=== PATIENT | female | born 1995 | race Caucasian/White ===

== ENCOUNTER 2023-08-04 16:29 | Emergency (ER) | payer MEDICAID ==
[~2023-08-04] VITALS: Ht 172.7 cm; Wt 122.2 kg
[2023-08-04 17:08] LABS: URINE HCG NEGATIVE (NEG)
[2023-08-04 17:10] LABS: BILIRUBIN,URINE NEGATIVE (Neg); CLARITY,URINE CLEAR (Clear); COLOR,URINE YELLOW (Yellow); GLUCOSE, URINE NEGATIVE (Neg); KETONES,URINE NEGATIVE (Neg); LEUKOCYTE ESTERASE ,URINE TRACE (Neg); NITRITES, URINE NEGATIVE (Neg); OCCULT BLOOD,URINE NEGATIVE (Neg); PROTEIN,URINE NEGATIVE (Neg); UROBILINOGEN,URINE 0.2 E.U/dL (0.2-1.0)
[2023-08-04 17:13] LABS: UA COLLECTION TYPE CLN CATCH MIDSTREAM
[2023-08-04 17:19] LABS: RBC,URINE 0-2 /HPF (0-2)
[2023-08-04 17:20] LABS: MUCUS STRANDS FEW /LPF (Neg); SQUAMOUS EPITHELIAL CELL,UR FEW /LPF (FEW)
[2023-08-04 17:22] LABS: BACTERIA,URINE 3+ /HPF (Neg)
[2023-08-04] MEDS ORDERED: cephalexin 250mg capsule PO ONE (17:55)
[2023-08-04] MEDS ORDERED: CEPH-585 PO (17:57)
[2023-08-04 18:24] VITALS: BP 110/74; PULSE 69; RESP 18; TEMP 97.7; O2SAT 98
--- NOTE | 2023-08-04 23:19 | NUR ---
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
== END 2023-08-04 18:28 | disposition home or self-care (01) ==
LOC: ER 16:30
DX: N39.0 Urinary tract infection, site not specified (principal); M25.561 Pain in right knee; R22.41 Localized swelling, mass and lump, right lower limb
CPT/HCPCS: 81001; 81025; 87088; 99283

== ENCOUNTER 2024-01-04 10:32 | Emergency (ER) | payer MEDICAID ==
[~2024-01-04 10:32] MED LIST: CEPH-585 PO
== END 2024-01-04 11:36 | disposition left against medical advice (07) ==
LOC: ER 10:33
DX: Z53.21 Procedure and treatment not carried out due to patient leaving prior to being seen by health care provider (principal)

== ENCOUNTER 2024-01-09 08:31 | Inpatient (IN) | payer MEDICAID ==
[~2024-01-09] VITALS: Ht 172.7 cm; Wt 111.2 kg
[2024-01-09 09:08] LABS: BILIRUBIN,URINE MODERATE (Neg); CLARITY,URINE CLOUDY (Clear); COLOR,URINE YELLOW (Yellow); GLUCOSE, URINE NEGATIVE (Neg); KETONES,URINE 15 mg/dl (Neg); LEUKOCYTE ESTERASE ,URINE TRACE (Neg); NITRITES, URINE NEGATIVE (Neg); OCCULT BLOOD,URINE TRACE-INTACT (Neg); PROTEIN,URINE TRACE mg/dl (Neg); UROBILINOGEN,URINE 0.2 E.U/dL (0.2-1.0)
[2024-01-09 09:10] LABS: UA COLLECTION TYPE CLN CATCH MIDSTREAM; URINE HCG NEGATIVE (NEG)
[2024-01-09 09:14] LABS: MUCUS STRANDS MODERATE /LPF (Neg); SQUAMOUS EPITHELIAL CELL,UR MANY /LPF (FEW)
[2024-01-09 09:15] LABS: BACTERIA,URINE 4+ /HPF (Neg)
[2024-01-09 09:29] LABS: URINE AMPHETAMINE SCREEN NEGATIVE (Neg); URINE BARBITUATE SCREEN NEGATIVE (Neg); URINE BENZODIAZEPINES SCREEN NEGATIVE (Neg); URINE CANNABINOID SCREEN NEGATIVE (Neg); URINE COCAINE SCREEN NEGATIVE (Neg); URINE METHADONE SCREEN NEGATIVE (Neg); URINE OPIATE SCREEN NEGATIVE (Neg); URINE PHENCYCLIDINE SCREEN NEGATIVE (Neg)
[2024-01-09 10:10] LABS: BASOPHILS # (AUTO) 0.1 X10'3 (0-0.2); BASOPHILS % (AUTO) 0.8 % (0-1); EOSINOPHILS # (AUTO) 0.2 X10'3 (0-0.9); EOSINOPHILS % (AUTO) 2.1 % (0-6); HEMATOCRIT 38.5 % (35.0-45.0); HEMOGLOBIN 12.9 g/dl (12.0-16.0); LYMPHOCYTES % (AUTO) 26.1 % (21-51); MEAN CORPUSCULAR HEMOGLOBIN 29.1 PG (27.0-31.0); MEAN CORPUSCULAR HGB CONC 33.4 g/dL (33.0-36.5); MEAN CORPUSCULAR VOLUME 87.1 FL (78-98); MEAN PLATELET VOLUME 8.8 FL (7.4-10.4); MONOCYTES # (AUTO) 0.7 X10'3 (0-0.9); MONOCYTES % (AUTO) 9.4 % (2-12); NEUTROPHILS # (AUTO) 4.7 X10'3 (1.8-7.7); NEUTROPHILS % (AUTO) 61.6 % (42-75); PLATELET COUNT 285 X10'3 (140-440); RED BLOOD COUNT 4.42 X10'6 (4.20-5.60); WHITE BLOOD COUNT 7.6 X10'3 (4.5-11.0)
[2024-01-09 10:37] LABS: ALBUMIN 3.8 G/DL (3.4-5.0); ANION GAP 12 (8-16); BLOOD UREA NITROGEN 12 MG/DL (7-18); BUN/CREATININE RATIO 16.7 (10.0-20.0); CALCIUM 9.8 MG/DL (8.5-10.1); CHLORIDE 103 MMOL/L (99-107); CREATININE 0.72 MG/DL (0.40-0.90); ETHANOL < 10 MG/DL (<10); GLUCOSE 88 MG/DL (70-104); SODIUM 140 MMOL/L (135-145); THYROID STIMULATING HORMONE 0.93 ulU/ml (0.34-4.50); TOTAL CARBON DIOXIDE 25.1 MMOL/L (24-32); eCRCL 117 ML/MIN; eGFR > 90 ML/MIN
[2024-01-09] MEDS: haloperidol lactate 5mg/ml inj IM ONE (10:43)
[2024-01-09] MEDS: LORazepam 2 mg/ml vial IM ONE (10:43)
[2024-01-09 10:58] LABS: POTASSIUM 3.5 MMOL/L (3.5-5.1)
[2024-01-09] MEDS ORDERED: FLUO20CA39 PO (13:38)
[2024-01-09] MEDS ORDERED: QUET-1 PO (13:38)
[2024-01-09] MEDS: nitrofuran monohydrate/nitrofuran macrocrysal 100 MG (MacroBID) capsule PO SCH (19:32)
[2024-01-09] MEDS: quetiapine 100mg tablet PO SCH (19:32)
[2024-01-10] MEDS: FLUoxetine 20mg capsule PO SCH (08:39)
[2024-01-10 09:15] VITALS: BP 130/90; PULSE 134; RESP 16; TEMP 97.9; O2SAT 95
[2024-01-10 09:30] VITALS: RESP 16; O2SAT 95
[2024-01-10] MEDS ORDERED: loperamide 2mg capsule PO PRN (09:35)
[2024-01-10] MEDS: LORazepam 1 MG tablet PO ONE (16:23)
[2024-01-10] MEDS: QUEtiapine 25mg tablet PO PRN (17:00)
[2024-01-10 17:26] VITALS: BP 111/66; PULSE 130; O2SAT 95
[2024-01-10 19:00] VITALS: BP 134/87; PULSE 125; RESP 16; TEMP 97.9; O2SAT 97
[2024-01-11 07:00] VITALS: RESP 16; O2SAT 95
[2024-01-11 08:00] VITALS: BP 123/89; PULSE 100; RESP 16; TEMP 98.9; O2SAT 97
[2024-01-11 19:15] VITALS: BP 133/83; PULSE 109; RESP 16; TEMP 98.7; O2SAT 97
[2024-01-11] MEDS: QUEtiapine 25mg tablet PO SCH (20:02)
[2024-01-11] MEDS: acetaminophen 325mg tablet PO PRN (20:03)
[2024-01-11] MEDS: LORazepam 1 MG tablet PO ONE (21:59)
[2024-01-12 07:09] VITALS: RESP 16; O2SAT 95
[2024-01-12 08:00] VITALS: BP 132/83; PULSE 102; RESP 16; TEMP 98.4; O2SAT 98
[2024-01-12] MEDS: quetiapine 100mg tablet PO SCH ×2 (08:36→20:15)
[2024-01-12 09:21] LABS: HCG SERUM QL NEGATIVE
[2024-01-12 09:25] LABS: CHOL/HDL RATIO 3.3 (0.00-4.99); CHOLESTEROL 163 MG/DL (0-200); HDL CHOLESTEROL 49 MG/DL (35-60); LDL CHOLESTEROL 99 MG/DL (50-100); TRIGLYCERIDES 63 MG/DL (20-135)
[2024-01-12] MEDS: quetiapine 100mg tablet PO ONE (19:01)
[2024-01-12] MEDS: LORazepam 1 MG tablet PO ONE (19:02)
[2024-01-12 19:19] VITALS: BP 129/88; PULSE 107; RESP 16; TEMP 98.3; O2SAT 97
[2024-01-12] MEDS: QUEtiapine 25mg tablet PO SCH (20:14)
[2024-01-12] MEDS: divalproex sod 250mg ER (24-hour) tablet PO SCH (20:14)
[2024-01-13 07:00] VITALS: RESP 16; O2SAT 98
[2024-01-13 08:00] VITALS: BP 109/75; PULSE 106; RESP 16; TEMP 98.3; O2SAT 98
[2024-01-13] MEDS: LORazepam 1 MG tablet PO ONE (12:14)
[2024-01-13] MEDS: QUEtiapine 25mg tablet PO ONE (12:54)
[2024-01-13 19:48] VITALS: BP 109/73; PULSE 105; RESP 19; TEMP 98.6; O2SAT 98
[2024-01-13] MEDS: divalproex sod 250mg ER (24-hour) tablet PO SCH (20:18)
[2024-01-14 07:30] VITALS: BP 115/97; PULSE 90; RESP 12; TEMP 98.3; O2SAT 96
[2024-01-14 07:31] VITALS: RESP 16
[2024-01-14] MEDS: QUEtiapine 25mg tablet PO PRN (08:54)
[2024-01-14] MEDS: haloperidol lactate 5mg/ml inj ONE (11:06)
[2024-01-14] MEDS: diphenhydrAMINE 50 mg/ml inj ONE (11:07)
[2024-01-14] MEDS: LORazepam 2 mg/ml vial ONE (11:07)
[2024-01-14 19:40] VITALS: RESP 16
[2024-01-14 19:42] VITALS: BP 117/69; PULSE 98; RESP 16; TEMP 97.8; O2SAT 98
[2024-01-15 07:30] VITALS: RESP 18; O2SAT 99
[2024-01-15 07:33] VITALS: BP 112/52; PULSE 83; RESP 18; TEMP 97.8; O2SAT 99
[2024-01-15] MEDS: magnesium hydroxide 30ml (MOM) UD suspension PO PRN (07:42)
[2024-01-15 19:23] VITALS: BP 119/82; PULSE 107; RESP 16; TEMP 98.1; O2SAT 96
[2024-01-16 06:58] VITALS: RESP 18; O2SAT 99
[2024-01-16 07:03] VITALS: BP 118/80; PULSE 91; RESP 18; TEMP 98.9; O2SAT 99
[2024-01-16 07:13] LABS: HBSAG SCREEN Negative (Negative); HEP B CORE AB, IGM Negative (Negative); HEP B CORE AB, TOT Negative (Negative)
[2024-01-16] MEDS: calcium carbonate 500mg chew tablet PO PRN (09:56)
[2024-01-16] MEDS: LORazepam 0.5 MG tablet PO PRN (09:56)
[2024-01-16 19:00] VITALS: RESP 18; O2SAT 95
[2024-01-16 20:41] VITALS: BP 119/99; PULSE 53; RESP 18; TEMP 98.3; O2SAT 95
[2024-01-17 07:24] VITALS: RESP 18; O2SAT 99
[2024-01-17] MEDS: QUEtiapine 25mg tablet PO SCH (08:00)
[2024-01-17 08:30] VITALS: BP 106/75; PULSE 89; RESP 18; TEMP 98.5; O2SAT 99
[2024-01-17 19:04] VITALS: RESP 16; O2SAT 98
[2024-01-17 19:22] VITALS: BP 119/81; PULSE 98; RESP 18; TEMP 98.2; O2SAT 99
[2024-01-17] MEDS ORDERED: quetiapine 100mg tablet PO SCH (21:00)
[2024-01-17] MEDS: quetiapine 100mg tablet PO SCH (21:10)
[2024-01-18 07:00] VITALS: RESP 16; O2SAT 99
[2024-01-18 07:30] VITALS: BP 127/76; PULSE 103; RESP 16; TEMP 98.7; O2SAT 99
[2024-01-18 19:00] VITALS: RESP 16; O2SAT 97
[2024-01-18 20:00] VITALS: BP 119/76; PULSE 109; RESP 16; TEMP 98.2; O2SAT 97
[2024-01-18] MEDS: traZODone 50mg tablet PO PRN (20:37)
[2024-01-19 07:00] VITALS: RESP 18; O2SAT 98
[2024-01-19 07:30] VITALS: BP 113/81; PULSE 98; RESP 18; TEMP 98.7; O2SAT 98
[2024-01-19] MEDS: fluticasone nasal spray 16GM bottle NS SCH (13:27)
[2024-01-19 19:30] VITALS: BP 120/70; PULSE 91; RESP 14; TEMP 98.6; O2SAT 99
[2024-01-19] MEDS: divalproex sod 250mg ER (24-hour) tablet PO SCH (20:33)
[2024-01-19] MEDS: traZODone 50mg tablet PO PRN (20:34)
[2024-01-19] MEDS: quetiapine 100mg tablet PO SCH (20:34)
[2024-01-20 07:00] VITALS: RESP 16; O2SAT 96; O2SAT 98
[2024-01-20 08:00] VITALS: BP 127/70; PULSE 89; RESP 16; TEMP 98.2; O2SAT 96
[2024-01-20 19:30] VITALS: BP 107/77; PULSE 91; RESP 20; TEMP 98.3; O2SAT 94
[2024-01-21 07:30] VITALS: BP 114/66; PULSE 92; RESP 18; TEMP 97.3; O2SAT 100
[2024-01-21 19:00] VITALS: BP 151/98; PULSE 112; RESP 16; TEMP 98.2; O2SAT 96
[2024-01-21] MEDS: divalproex sod 250mg ER (24-hour) tablet PO SCH (20:35)
[2024-01-22 07:00] VITALS: RESP 16; O2SAT 98
[2024-01-22] MEDS: multivitamins, therapeutics tablet PO SCH (07:19)
[2024-01-22 07:30] VITALS: BP 132/84; PULSE 104; RESP 16; TEMP 98; O2SAT 98
[2024-01-22 19:27] VITALS: BP 125/78; PULSE 108; RESP 18; TEMP 98.1; O2SAT 99
[2024-01-22] MEDS: quetiapine 100mg tablet PO SCH (20:15)
[2024-01-23 07:30] VITALS: RESP 20; O2SAT 97
[2024-01-23 08:00] VITALS: BP 115/83; PULSE 86; RESP 12; TEMP 97.4; O2SAT 99
[2024-01-23] MEDS: acetaminophen 325mg tablet PO PRN (08:16)
[2024-01-23] MEDS: LORazepam 0.5 MG tablet PO SCH (17:27)
[2024-01-23 19:00] VITALS: RESP 12; O2SAT 99
[2024-01-23 19:53] VITALS: BP 122/68; PULSE 102; RESP 12; TEMP 98.4; O2SAT 99
[2024-01-23] MEDS: quetiapine 100mg tablet PO SCH (21:10)
[2024-01-24] MEDS: OLANZapine 5mg rapidly disint. tablet PO ONE (05:53)
[2024-01-24 07:00] VITALS: RESP 18; O2SAT 98
[2024-01-24 08:00] VITALS: BP 123/85; PULSE 117; RESP 18; TEMP 98; O2SAT 98
[2024-01-24 19:00] VITALS: RESP 18; O2SAT 98
[2024-01-24 20:00] VITALS: BP 90/66; PULSE 103; RESP 18; TEMP 97.7; O2SAT 98
[2024-01-24] MEDS: olanzapine 10mg tablet PO SCH (20:45)
[2024-01-25 07:00] VITALS: RESP 18; O2SAT 98
[2024-01-25 08:00] VITALS: BP 124/78; PULSE 106; RESP 16; TEMP 97.7; O2SAT 95
[2024-01-25 19:51] VITALS: BP 142/108; PULSE 120; RESP 18; TEMP 98.6; O2SAT 98
[2024-01-26 07:07] VITALS: RESP 18; O2SAT 98
[2024-01-26 08:00] VITALS: BP 125/82; PULSE 98; RESP 16; TEMP 98.6; O2SAT 98
[2024-01-26 19:00] VITALS: RESP 20; O2SAT 100
[2024-01-26 19:24] VITALS: BP 123/87; PULSE 98; RESP 20; TEMP 98.5; O2SAT 100
[2024-01-26] MEDS: OLANZAPINE 5 MG TABLET PO SCH (20:44)
[2024-01-27 06:42] VITALS: RESP 18; O2SAT 98
[2024-01-27 08:00] VITALS: BP 123/70; PULSE 112; RESP 16; TEMP 97.7; O2SAT 16
[2024-01-27] MEDS: LORazepam 2 mg/ml vial ONE (16:52)
[2024-01-27 19:00] VITALS: RESP 18; O2SAT 99
[2024-01-27 20:00] VITALS: BP 123/72; PULSE 97; RESP 18; TEMP 98.7; O2SAT 99
[2024-01-28 07:00] VITALS: BP 108/61; PULSE 67; RESP 14; TEMP 98; O2SAT 98
[2024-01-28] MEDS ORDERED: OLANZapine 2.5MG tablet PO SCH (08:00)
[2024-01-28] MEDS ORDERED: multivitamins, therapeutics tablet PO SCH (08:00)
[2024-01-28] MEDS: OLANZapine 5mg rapidly disint. tablet PO ONE (08:44)
[2024-01-28] MEDS: divalproex sod 250mg ER (24-hour) tablet PO ONE (09:36)
[2024-01-28] MEDS: LORazepam 0.5 MG tablet PO SCH (13:08)
[2024-01-28 19:00] VITALS: RESP 16; O2SAT 98
[2024-01-28 20:00] VITALS: BP 121/80; PULSE 91; RESP 16; TEMP 97.2; O2SAT 97
[2024-01-29 08:00] VITALS: BP 150/81; PULSE 104; RESP 18; TEMP 98.3; O2SAT 98
[2024-01-29] MEDS: OLANZapine 5mg rapidly disint. tablet PO SCH (08:02)
[2024-01-29 19:00] VITALS: BP 128/89; PULSE 111; RESP 17; TEMP 97.9; O2SAT 99
[2024-01-29 19:45] VITALS: BP 146/100; PULSE 111; RESP 18; TEMP 97.9; O2SAT 98
[2024-01-30 07:51] VITALS: BP 130/99; PULSE 85; RESP 16; TEMP 98.9; O2SAT 98
[2024-01-30 07:59] VITALS: RESP 16; O2SAT 98
[2024-01-30] MEDS: LORazepam 1 MG tablet PO ONE (09:37)
[2024-01-30 19:00] VITALS: RESP 18; O2SAT 98
[2024-01-30 20:38] VITALS: BP 122/77; PULSE 95; RESP 18; TEMP 98.1; O2SAT 98
[2024-01-31 06:22] VITALS: RESP 16
[2024-01-31 07:15] VITALS: BP 149/87; PULSE 90; RESP 18; TEMP 98.7; O2SAT 96
[2024-01-31 19:00] VITALS: BP 124/82; PULSE 105; RESP 20; TEMP 98.3; O2SAT 98
[2024-02-01 07:00] VITALS: RESP 16
[2024-02-01] MEDS: OLANZapine 5mg rapidly disint. tablet PO SCH (07:13)
[2024-02-01 08:00] VITALS: BP 134/82; PULSE 117; RESP 18; TEMP 98; O2SAT 96
[2024-02-01 20:00] VITALS: BP 134/84; PULSE 103; RESP 16; TEMP 98.3; O2SAT 99
[2024-02-02 07:31] VITALS: RESP 16
[2024-02-02 08:00] VITALS: BP 125/82; PULSE 86; RESP 12; TEMP 98.2; O2SAT 96
[2024-02-02] MEDS: LORazepam 1 MG tablet PO ONE (10:40)
[2024-02-02] MEDS: OLANZapine 5mg rapidly disint. tablet PO ONE (10:41)
[2024-02-02 19:30] VITALS: BP 129/91; PULSE 106; RESP 18; TEMP 98; O2SAT 96
[2024-02-03 06:59] VITALS: RESP 16
[2024-02-03 08:00] VITALS: BP 95/75; PULSE 114; RESP 20; TEMP 97.8; O2SAT 97
[2024-02-03 19:30] VITALS: BP 129/82; PULSE 99; RESP 18; TEMP 97.3; O2SAT 100
[2024-02-03 20:30] LABS: BASOPHILS # (AUTO) 0.1 X10'3 (0-0.2); BASOPHILS % (AUTO) 0.4 % (0-1); EOSINOPHILS # (AUTO) 0.2 X10'3 (0-0.9); EOSINOPHILS % (AUTO) 1.4 % (0-6); HEMATOCRIT 37.8 % (35.0-45.0); HEMOGLOBIN 12.4 g/dl (12.0-16.0); LYMPHOCYTES # (AUTO) 3.6 X10'3 (1.1-4.8); LYMPHOCYTES % (AUTO) 27.1 % (21-51); MEAN CORPUSCULAR HEMOGLOBIN 28.8 PG (27.0-31.0); MEAN CORPUSCULAR HGB CONC 32.9 g/dL (33.0-36.5); MEAN CORPUSCULAR VOLUME 87.6 FL (78-98); MEAN PLATELET VOLUME 8.3 FL (7.4-10.4); MONOCYTES # (AUTO) 1.1 X10'3 (0-0.9); MONOCYTES % (AUTO) 8.1 % (2-12); NEUTROPHILS # (AUTO) 8.4 X10'3 (1.8-7.7); PLATELET COUNT 292 X10'3 (140-440); RED BLOOD COUNT 4.31 X10'6 (4.20-5.60); RED CELL DISTRIBUTION WIDTH 13.6 % (11.5-14.5); WHITE BLOOD COUNT 13.3 X10'3 (4.5-11.0)
[2024-02-03 21:01] LABS: ALANINE AMINOTRANSFERASE 17 U/L (12-78); ALBUMIN 3.5 G/DL (3.4-5.0); ALBUMIN/GLOBULIN RATIO 0.9 (1.1-1.5); ALKALINE PHOSPHATASE 63 IU/L (46-116); ANION GAP 9 (8-16); ASPARTATE AMINO TRANSFERASE 11 U/L (10-37); BILIRUBIN,TOTAL 0.2 MG/DL (0.1-1.0); BLOOD UREA NITROGEN 14 MG/DL (7-18); CALCIUM 9.2 MG/DL (8.5-10.1); CHLORIDE 104 MMOL/L (99-107); CREATININE 0.56 MG/DL (0.40-0.90); GLUCOSE 98 MG/DL (70-104); SODIUM 139 MMOL/L (135-145); TOTAL CARBON DIOXIDE 26.3 MMOL/L (24-32); TOTAL PROTEIN 7.6 G/DL (6.4-8.2); eCRCL 150 ML/MIN; eGFR > 90 ML/MIN
[2024-02-03 21:04] LABS: VALPROATE 53 UG/ML (50-100)
[2024-02-04 07:00] VITALS: BP 115/64; PULSE 102; RESP 15; TEMP 98; O2SAT 97
[2024-02-04 08:24] LABS: BASOPHILS % (AUTO) 0.5 % (0-1); EOSINOPHILS # (AUTO) 0.1 X10'3 (0-0.9); EOSINOPHILS % (AUTO) 1.1 % (0-6); HEMOGLOBIN 12.7 g/dl (12.0-16.0); LYMPHOCYTES # (AUTO) 1.8 X10'3 (1.1-4.8); LYMPHOCYTES % (AUTO) 19.6 % (21-51); MEAN CORPUSCULAR HEMOGLOBIN 29.2 PG (27.0-31.0); MEAN CORPUSCULAR HGB CONC 33.3 g/dL (33.0-36.5); MEAN CORPUSCULAR VOLUME 87.7 FL (78-98); MEAN PLATELET VOLUME 8.5 FL (7.4-10.4); MONOCYTES # (AUTO) 0.9 X10'3 (0-0.9); MONOCYTES % (AUTO) 9.8 % (2-12); NEUTROPHILS # (AUTO) 6.4 X10'3 (1.8-7.7); PLATELET COUNT 276 X10'3 (140-440); RED BLOOD COUNT 4.34 X10'6 (4.20-5.60); RED CELL DISTRIBUTION WIDTH 13.5 % (11.5-14.5); WHITE BLOOD COUNT 9.3 X10'3 (4.5-11.0)
[2024-02-04] MEDS: OLANZapine 2.5MG tablet PO ONE (09:48)
[2024-02-04] MEDS: LORazepam 1 MG tablet PO ONE (09:48)
[2024-02-04] MEDS: OLANZAPINE 5 MG TABLET PO ONE (09:48)
[2024-02-04 19:50] VITALS: BP 116/79; PULSE 98; RESP 24; TEMP 97.6; O2SAT 99
[2024-02-04] MEDS: divalproex sod 125mg sprinkle cap PO SCH (20:22)
[2024-02-05 07:00] VITALS: BP 109/82; PULSE 83; RESP 16; TEMP 97.5; O2SAT 96
[2024-02-05] MEDS: divalproex sod 125mg sprinkle cap PO SCH (07:09)
[2024-02-05] MEDS: OLANZapine 5mg rapidly disint. tablet PO SCH (07:09)
[2024-02-05 20:06] VITALS: BP 105/80; PULSE 117; RESP 18; TEMP 98.1; O2SAT 98
[2024-02-06 07:00] VITALS: BP 121/78; PULSE 87; RESP 16; TEMP 98.3; O2SAT 96
[2024-02-06 19:00] VITALS: RESP 20; O2SAT 99
[2024-02-06 19:17] LABS: BASOPHILS # (AUTO) 0.1 X10'3 (0-0.2); BASOPHILS % (AUTO) 0.7 % (0-1); EOSINOPHILS # (AUTO) 0.3 X10'3 (0-0.9); EOSINOPHILS % (AUTO) 2.2 % (0-6); HEMATOCRIT 38.9 % (35.0-45.0); HEMOGLOBIN 12.8 g/dl (12.0-16.0); LYMPHOCYTES # (AUTO) 3.6 X10'3 (1.1-4.8); LYMPHOCYTES % (AUTO) 30.1 % (21-51); MEAN CORPUSCULAR HEMOGLOBIN 29.1 PG (27.0-31.0); MEAN CORPUSCULAR HGB CONC 32.9 g/dL (33.0-36.5); MEAN CORPUSCULAR VOLUME 88.4 FL (78-98); MEAN PLATELET VOLUME 8.1 FL (7.4-10.4); MONOCYTES # (AUTO) 1.1 X10'3 (0-0.9); MONOCYTES % (AUTO) 9.1 % (2-12); NEUTROPHILS # (AUTO) 6.9 X10'3 (1.8-7.7); NEUTROPHILS % (AUTO) 57.9 % (42-75); PLATELET COUNT 327 X10'3 (140-440); RED CELL DISTRIBUTION WIDTH 13.6 % (11.5-14.5)
[2024-02-06 20:33] VITALS: BP 131/71; PULSE 124; RESP 20; TEMP 98.2; O2SAT 99
[2024-02-07 07:00] VITALS: RESP 16; O2SAT 98
[2024-02-07 08:00] VITALS: BP 118/86; PULSE 127; RESP 16; TEMP 97.9; O2SAT 98
[2024-02-07] MEDS: LORazepam 1 MG tablet PO ONE (10:29)
[2024-02-07] MEDS: LORazepam 2 mg/ml vial ONE (17:40)
[2024-02-07 19:00] VITALS: RESP 16; O2SAT 98
[2024-02-07 20:00] VITALS: BP 109/72; PULSE 108; RESP 20; TEMP 98.3; O2SAT 97
[2024-02-08 07:00] VITALS: RESP 16; O2SAT 99
[2024-02-08] MEDS: divalproex sod 125mg sprinkle cap PO SCH (07:21)
[2024-02-08 08:00] VITALS: BP 163/90; PULSE 98; RESP 16; TEMP 97.2; O2SAT 99
[2024-02-08] MEDS: magnesium oxide 400mg tablet PO SCH (11:51)
[2024-02-08] MEDS: mag hydrox/Alum hydrox/simeth 30ml oral suspension PO PRN (13:22)
[2024-02-08] MEDS: LORazepam 1 MG tablet PO ONE (17:44)
[2024-02-08 19:00] VITALS: RESP 18; O2SAT 98
[2024-02-08 19:26] VITALS: BP 122/95; PULSE 110; RESP 18; TEMP 98.1; O2SAT 98
[2024-02-09 07:16] VITALS: RESP 18; O2SAT 98
[2024-02-09 08:00] VITALS: BP 120/92; PULSE 75; RESP 16; TEMP 97.6; O2SAT 99
[2024-02-09 19:00] VITALS: RESP 18; O2SAT 95
[2024-02-09 19:18] VITALS: BP 109/68; PULSE 101; RESP 18; TEMP 97.7; O2SAT 95
[2024-02-10 07:07] VITALS: RESP 18; O2SAT 98
[2024-02-10 08:00] VITALS: BP 127/87; PULSE 96; RESP 16; TEMP 97.9; O2SAT 96
[2024-02-10 19:00] VITALS: RESP 22; O2SAT 99
[2024-02-10 20:00] VITALS: BP 140/111; PULSE 99; RESP 22; TEMP 97.8; O2SAT 99
[2024-02-11 07:00] VITALS: RESP 18; O2SAT 95
[2024-02-11 08:00] VITALS: BP 119/77; PULSE 96; RESP 16; TEMP 97.9; O2SAT 96
[2024-02-11 18:11] LABS: ALANINE AMINOTRANSFERASE 26 U/L (12-78); ALBUMIN 3.4 G/DL (3.4-5.0); ALBUMIN/GLOBULIN RATIO 0.8 (1.1-1.5); ALKALINE PHOSPHATASE 60 IU/L (46-116); ANION GAP 11 (8-16); ASPARTATE AMINO TRANSFERASE 16 U/L (10-37); BILIRUBIN,TOTAL 0.1 MG/DL (0.1-1.0); BLOOD UREA NITROGEN 14 MG/DL (7-18); BUN/CREATININE RATIO 21.2 (10.0-20.0); CALCIUM 9.2 MG/DL (8.5-10.1); CHLORIDE 102 MMOL/L (99-107); CREATININE 0.66 MG/DL (0.40-0.90); GLUCOSE 77 MG/DL (70-104); POTASSIUM 3.9 MMOL/L (3.5-5.1); SODIUM 137 MMOL/L (135-145); TOTAL CARBON DIOXIDE 24.1 MMOL/L (24-32); TOTAL PROTEIN 7.9 G/DL (6.4-8.2); VALPROATE 81 UG/ML (50-100); eCRCL 127 ML/MIN; eGFR > 90 ML/MIN
[2024-02-11 18:52] VITALS: RESP 24; O2SAT 99
[2024-02-11 19:09] VITALS: BP 124/73; PULSE 116; RESP 24; TEMP 98.1; O2SAT 99
[2024-02-12 07:00] VITALS: BP 118/68; PULSE 86; RESP 16; TEMP 98.4; O2SAT 98
[2024-02-12 19:25] VITALS: RESP 20; O2SAT 98
[2024-02-12 19:28] VITALS: BP 114/78; PULSE 128; RESP 20; TEMP 98.7; O2SAT 98
[2024-02-12] MEDS: docusate sod 100mg capsule PO SCH (20:33)
[2024-02-12] MEDS: psyllium seed 5.8 gm packet (sugar-free) PO SCH (20:36)
[2024-02-13 07:00] VITALS: BP 102/70; PULSE 96; RESP 16; TEMP 97.9; O2SAT 94
[2024-02-13] MEDS: LIDOcaine 5% patch TP SCH (08:17)
[2024-02-13] MEDS: LORazepam 1 MG tablet PO ONE (17:08)
[2024-02-13 19:00] VITALS: RESP 20; O2SAT 98
[2024-02-13 20:07] VITALS: BP 116/74; PULSE 98; RESP 20; TEMP 98.6; O2SAT 98
[2024-02-14 06:55] VITALS: RESP 16
[2024-02-14 07:30] VITALS: BP 113/68; PULSE 87; RESP 16; TEMP 98.1; O2SAT 98
[2024-02-14 19:00] VITALS: RESP 16
[2024-02-14 20:00] VITALS: BP 100/71; PULSE 87; RESP 16; TEMP 98.3; O2SAT 100
[2024-02-15 07:20] VITALS: RESP 16
[2024-02-15 07:27] VITALS: BP 128/72; PULSE 78; RESP 16; TEMP 98.1; O2SAT 96
[2024-02-15] MEDS: docusate sod 100mg capsule PO SCH (08:00)
[2024-02-15] MEDS: polyethylene glycol 3350 17gm powd pack PO SCH (08:24)
[2024-02-15 19:00] VITALS: RESP 16
[2024-02-15 19:34] VITALS: BP 114/86; PULSE 105; RESP 18; TEMP 98; O2SAT 99
[2024-02-16 07:00] VITALS: BP 132/86; PULSE 89; RESP 16; TEMP 98.5; O2SAT 97
[2024-02-16 19:57] VITALS: BP 148/86; PULSE 120; RESP 13; TEMP 99.1; O2SAT 97
[2024-02-17] MEDS: hydrOXYzine 25 MG tablet PO PRN (05:33)
[2024-02-17 07:00] VITALS: RESP 19; O2SAT 100
[2024-02-17 08:00] VITALS: BP 124/88; PULSE 75; RESP 19; TEMP 97.7; O2SAT 100
[2024-02-17] MEDS: celeCOXIB 100mg capsule PO SCH (08:20)
[2024-02-17 19:00] VITALS: RESP 19; O2SAT 100
[2024-02-17 20:00] VITALS: BP 127/79; PULSE 99; RESP 17; TEMP 97.2; O2SAT 99
[2024-02-18 07:00] VITALS: BP 116/77; PULSE 77; RESP 18; TEMP 97.8; O2SAT 100
[2024-02-18 19:00] VITALS: RESP 18; O2SAT 97
[2024-02-18 20:00] VITALS: BP 107/67; PULSE 101; RESP 18; TEMP 98.1; O2SAT 97
[2024-02-18] MEDS: OLANZAPINE 5 MG TABLET PO SCH (20:28)
[2024-02-19 07:00] VITALS: BP 102/76; PULSE 94; RESP 16; TEMP 97.6; O2SAT 96
[2024-02-19 19:30] VITALS: RESP 18; O2SAT 98
[2024-02-19 20:17] VITALS: BP 116/76; PULSE 109; RESP 18; TEMP 98; O2SAT 98
[2024-02-20 07:00] VITALS: RESP 18; O2SAT 98
[2024-02-20 07:30] VITALS: BP 130/81; PULSE 100; RESP 18; TEMP 97.7; O2SAT 98
[2024-02-20 19:57] VITALS: BP 122/86; PULSE 91; RESP 16; TEMP 97.3; O2SAT 98
[2024-02-21 07:00] VITALS: RESP 16; O2SAT 99
[2024-02-21 08:00] VITALS: BP 134/80; PULSE 73; RESP 16; TEMP 97.7; O2SAT 99
[2024-02-21 19:00] VITALS: RESP 16; O2SAT 97
[2024-02-21 19:37] VITALS: BP 117/80; PULSE 110; RESP 16; TEMP 98.2; O2SAT 97
[2024-02-22 07:21] VITALS: RESP 16; O2SAT 99
[2024-02-22 08:00] VITALS: BP 109/67; PULSE 89; RESP 16; TEMP 98.3; O2SAT 96
[2024-02-22 19:10] VITALS: BP 123/78; PULSE 96; RESP 20; TEMP 97.4; O2SAT 99
[2024-02-23 07:29] VITALS: RESP 16; O2SAT 99
[2024-02-23] MEDS ORDERED: HYDR-3686 PO ×2 (08:15→09:39)
[2024-02-23] MEDS ORDERED: DIVA500T4 PO ×2 (08:15→09:40)
[2024-02-23] MEDS ORDERED: FLUT16SP NS ×2 (08:15→09:39)
[2024-02-23] MEDS ORDERED: CELE-148 PO ×2 (08:15→09:39)
[2024-02-23] MEDS ORDERED: OLAN20TA34 PO ×2 (08:15→09:39)
[2024-02-23] MEDS ORDERED: Lorazepam PO (08:15)
[2024-02-23] MEDS ORDERED: TRAZ-256 PO ×2 (08:15→09:39)
[2024-02-23] MEDS ORDERED: DOCU100C40 PO ×2 (08:15→09:39)
[2024-02-23] MEDS ORDERED: LORA-268 PO (08:17)
== END 2024-02-23 10:36 | disposition home or self-care (01) | DRG 753 ==
LOC: ER 08:32 → ED HOLD 01-10 08:30 → ADULT MH 01-10 09:17
PROVIDERS: ADMIT Psychiatry & Neurology Psychiatry; ATTEND Psychiatry & Neurology Psychiatry
PROC: GZHZZZZ Group Psychotherapy (ICD-10-PCS; principal; 2024-01-11)
PROC: GZ51ZZZ Individual Psychotherapy, Behavioral (ICD-10-PCS; 2024-01-11)
DX: F31.89 Other bipolar disorder (principal); F23 Brief psychotic disorder; F41.9 Anxiety disorder, unspecified; N39.0 Urinary tract infection, site not specified; Z20.822 Contact with and (suspected) exposure to COVID-19; G89.29 Other chronic pain; K59.00 Constipation, unspecified
CPT/HCPCS: 36415; 71045; 73610; 74018; 80048; 80053; 80061; 80164; 80305; 80320; 81001; 81025; 82948; 83036; 84443; 84703; 85025; 86704; 86705; 87081; 87340; 87811; 93005; 96372; 99285; A6250; J1200; J1630; J2060; Q0177

== ENCOUNTER 2024-07-05 12:13 | Emergency (ER) | payer MEDICAID ==
[~2024-07-05] VITALS: Ht 170.2 cm; Wt 122.5 kg
[~2024-07-05 12:13] MED LIST changes: +CELE-148 PO; -CEPH-585 PO; +DOCU100C40 PO; +FLUT16SP NS; +HYDR-3686 PO; +LORA-268 PO; +OLAN20TA81 PO; +TRAZ-256 PO
[2024-07-05 13:16] VITALS: TEMP 98.2
[2024-07-05] MEDS ORDERED: NORG1TAB78 (13:24)
[2024-07-05] MEDS ORDERED: DIVA500T9 (13:24)
[2024-07-05] MEDS ORDERED: QUET100T34 (13:24)
[2024-07-05 14:26] LABS: BASOPHILS % (AUTO) 0.5 % (0-1); EOSINOPHILS # (AUTO) 0.1 X10'3 (0-0.9); EOSINOPHILS % (AUTO) 1.2 % (0-6); HEMATOCRIT 41.9 % (35.0-45.0); HEMOGLOBIN 13.9 g/dl (12.0-16.0); LYMPHOCYTES % (AUTO) 20.9 % (21-51); MEAN CORPUSCULAR HEMOGLOBIN 29.9 PG (27.0-31.0); MEAN CORPUSCULAR HGB CONC 33.2 g/dL (33.0-36.5); MEAN CORPUSCULAR VOLUME 90.1 FL (78-98); MEAN PLATELET VOLUME 7.3 FL (7.4-10.4); MONOCYTES # (AUTO) 0.8 X10'3 (0-0.9); MONOCYTES % (AUTO) 8.9 % (2-12); NEUTROPHILS # (AUTO) 6.5 X10'3 (1.8-7.7); NEUTROPHILS % (AUTO) 68.5 % (42-75); PLATELET COUNT 255 X10'3 (140-440); RED BLOOD COUNT 4.65 X10'6 (4.20-5.60); WHITE BLOOD COUNT 9.5 X10'3 (4.5-11.0)
[2024-07-05 14:49] LABS: ALBUMIN 3.6 G/DL (3.4-5.0); ANION GAP 11 (8-16); BLOOD UREA NITROGEN 10 MG/DL (7-18); BUN/CREATININE RATIO 11.8 (10.0-20.0); CALCIUM 9.1 MG/DL (8.5-10.1); CHLORIDE 101 MMOL/L (99-107); CREATININE 0.85 MG/DL (0.40-0.90); ETHANOL < 10 MG/DL (<10); GLUCOSE 88 MG/DL (70-104); POTASSIUM 3.7 MMOL/L (3.5-5.1); SALICYLATE 1.5 MG/DL (4.0-20.0); SODIUM 138 MMOL/L (135-145); eCRCL 95 ML/MIN; eGFR 79 ML/MIN
[2024-07-05 14:52] LABS: BILIRUBIN,URINE NEGATIVE (Neg); CLARITY,URINE CLOUDY (Clear); COLOR,URINE YELLOW (Yellow); GLUCOSE, URINE NEGATIVE (Neg); KETONES,URINE TRACE mg/dl (Neg); LEUKOCYTE ESTERASE ,URINE SMALL (Neg); NITRITES, URINE NEGATIVE (Neg); OCCULT BLOOD,URINE NEGATIVE (Neg); PH,URINE 6.5 (4.8-8.0); PROTEIN,URINE NEGATIVE (Neg); UROBILINOGEN,URINE 0.2 E.U/dL (0.2-1.0)
[2024-07-05 14:53] LABS: UA COLLECTION TYPE VOIDED
[2024-07-05 14:54] LABS: URINE HCG NEGATIVE (NEG)
[2024-07-05 15:03] LABS: ACETAMINOPHEN < 2.0 UG/ML (10-30)
[2024-07-05 15:07] LABS: BACTERIA,URINE 2+ /HPF (Neg); SQUAMOUS EPITHELIAL CELL,UR MANY /LPF (FEW)
[2024-07-05 15:28] LABS: URINE AMPHETAMINE SCREEN NEGATIVE (Neg); URINE BARBITUATE SCREEN NEGATIVE (Neg); URINE BENZODIAZEPINES SCREEN NEGATIVE (Neg); URINE CANNABINOID SCREEN NEGATIVE (Neg); URINE COCAINE SCREEN NEGATIVE (Neg); URINE METHADONE SCREEN NEGATIVE (Neg); URINE OPIATE SCREEN NEGATIVE (Neg); URINE PHENCYCLIDINE SCREEN NEGATIVE (Neg)
[2024-07-06 00:28] VITALS: BP 100/62; O2SAT 97
[2024-07-06 02:17] LABS: THYROID STIMULATING HORMONE 1.33 ulU/ml (0.34-4.50)
[2024-07-06 08:25] VITALS: RESP 16
[2024-07-06] MEDS ORDERED: OLAN5TAB75 PO (09:40)
[2024-07-06] MEDS ORDERED: HYDR-3686 PO (09:40)
[2024-07-06] MEDS ORDERED: DIVA500T9 PO (09:40)
[2024-07-06] MEDS ORDERED: OLAN10TA40 PO (09:40)
[2024-07-06] MEDS ORDERED: TRAZ-256 PO (09:40)
[2024-07-06] MEDS: hydrOXYzine 25 MG tablet PO ONE (10:05)
[2024-07-06] MEDS: OLANZapine 2.5MG tablet PO SCH (10:08)
[2024-07-06] MEDS ORDERED: olanzapine 10mg tablet PO SCH (10:13)
[2024-07-06] MEDS ORDERED: hydrOXYzine 25 MG tablet PO PRN (10:45)
[2024-07-06] MEDS ORDERED: OLANZAPINE 5 MG TABLET PO PRN (10:45)
[2024-07-06] MEDS ORDERED: divalproex sodium 500mg tablet.DR PO SCH (21:00)
[2024-07-06] MEDS ORDERED: traZODone 50mg tablet PO SCH (21:00)
[2024-07-07] MEDS ORDERED: olanzapine 10mg tablet PO SCH (08:00)
== END 2024-07-06 10:25 ==
LOC: ER 12:14
DX: R45.851 Suicidal ideations (principal); F32.A Depression, unspecified; Z79.51 Long term (current) use of inhaled steroids; Z60.2 Problems related to living alone; Z20.822 Contact with and (suspected) exposure to COVID-19
CPT/HCPCS: 36415; 80048; 80305; 80320; 80329; 81001; 81025; 84443; 85025; 87811; 99285; Q0177; 99284

== ENCOUNTER 2024-10-29 12:38 | Emergency (ER) | payer MEDICAID ==
[~2024-10-29] VITALS: Ht 170.2 cm; Wt 138.7 kg
[~2024-10-29 12:38] MED LIST changes: -CELE-148 PO; +DIVA500T9 PO; -DOCU100C40 PO; -FLUT16SP NS; -LORA-268 PO; +OLAN10TA40 PO; -OLAN20TA81 PO; +OLAN5TAB75 PO
[2024-10-29 12:48] VITALS: BP 139/74; PULSE 96; TEMP 97.7; O2SAT 97
[2024-10-29] MEDS ORDERED: AMOX-580 PO (14:38)
[2024-10-29] MEDS ORDERED: PSEU120T56 PO (14:38)
[2024-10-29] MEDS ORDERED: FLUT16SP2 BOTHNARES (14:38)
[2024-10-29 14:50] VITALS: RESP 18
== END 2024-10-29 15:00 | disposition home or self-care (01) ==
LOC: ER 12:38
DX: J32.9 Chronic sinusitis, unspecified (principal)
CPT/HCPCS: 99283